=== PATIENT | male | born 1960 | race Caucasian/White ===

== ENCOUNTER 2016-10-02 | Outpatient (CLI) | payer MEDICAID | END 2016-10-02 11:50 | disposition critical access hospital (66) | DX: R41.82 Altered mental status, unspecified (principal) | CPT/HCPCS: A0425; A0427 ==

== ENCOUNTER 2016-10-02 12:01 | Inpatient (IN) | payer MEDICAID ==
[2016-10-02] MEDS ORDERED: SODIUM CHLORIDE 0.9% 1,000 ML IV ONE ×3 (12:09→16:30)
[2016-10-02] MEDS ORDERED: ETOMIDATE 40 MG/20 ML VIAL IVP ONE (12:37)
[2016-10-02] MEDS ORDERED: PROPOFOL 1000 MG/100 ML 100 ML IV ONE (12:37)
[2016-10-02] MEDS ORDERED: SUCCINYLCHOLINE 200 MG/10 ML VIAL ONE (12:38)
[2016-10-02] MEDS ORDERED: ELECTROLYTE-A SOLUTION 1,000 ML IV ONE ×2 (12:46→13:05)
[2016-10-02] MEDS ORDERED: LACTATED RINGERS 1,000 ML IV STA (12:46)
[2016-10-02] MEDS ORDERED: ETOMIDATE 40 MG/20 ML VIAL IVP STA (13:01)
[2016-10-02] MEDS ORDERED: SUCCINYLCHOLINE 200 MG/10 ML VIAL IVP STA (13:01)
[2016-10-02] MEDS: PROPOFOL 1000 MG/100 ML 100 ML IV STA ×2 (13:04→16:09)
[2016-10-02] MEDS ORDERED: LACTULOSE 10 GM /15 ML UDC PO STA (13:06)
[2016-10-02] MEDS ORDERED: fentaNYL 100 MCG/2 ML VIAL ONE ×2 (13:11→14:50)
[2016-10-02] MEDS ORDERED: fentaNYL 100 MCG/2 ML VIAL IVP STA ×2 (13:12→14:49)
[2016-10-02] MEDS ORDERED: VECURONIUM 10 MG VIAL IVP STA (13:17)
[2016-10-02] MEDS ORDERED: VECURONIUM 10 MG VIAL ONE (13:22)
[2016-10-02] MEDS ORDERED: PANTOPRAZOLE 40 MG VIAL IVP STA (13:41)
[2016-10-02] MEDS ORDERED: cefTRIAXone 2 GM in SODIUM CHLORIDE 0.9% MINIBAG 100 ML IV STA (13:41)
[2016-10-02] MEDS ORDERED: VANCOMYCIN INJ 1.5 GM in SODIUM CHLORIDE 0.9% 500 ML IV STA (13:41)
[2016-10-02] MEDS ORDERED: LORazepam 2 MG/ML SYRINGE IVP STA ×2 (13:41→14:29)
[2016-10-02] MEDS ORDERED: LACTULOSE 10 GM /15 ML UDC ONE (13:47)
[2016-10-02] MEDS ORDERED: LORazepam 2 MG/ML SYRINGE ONE ×2 (13:47→14:29)
[2016-10-02] MEDS ORDERED: PANTOPRAZOLE 40 MG VIAL ONE (13:55)
[2016-10-02] MEDS ORDERED: cefTRIAXone 2 GM VIAL ONE (14:10)
[2016-10-02] MEDS ORDERED: ONDANSETRON 4 MG/2 ML VIAL IVP PRN (15:36)
[2016-10-02] MEDS ORDERED: IPRATROPIUM/ALBUTEROL 3 ML NEB INH PRN (15:36)
[2016-10-02] MEDS ORDERED: SODIUM CHLORIDE FLUSH 0.9% 10 ML SYRINGE IVP PRN (15:36)
[2016-10-02] MEDS ORDERED: VANCOMYCIN PER PHARMACY 1 GM in SODIUM CHLORIDE 0.9% 250 ML IV SCH (15:36)
[2016-10-02] MEDS ORDERED: MAGNESIUM SULFATE 2 GRAM 50 ML IV ONE (16:00)
[2016-10-02] MEDS ORDERED: PIPERACILLIN/TAZOBACTAM 3.375 GM in SODIUM CHLORIDE 0.9% MINIBAG 100 ML IV ONE ×2 (16:00→17:00)
[2016-10-02] MEDS: PROPOFOL 1000 MG/100 ML 100 ML IV SCH ×2 (16:10→18:05)
[2016-10-02] MEDS ORDERED: MIDAZOLAM 50 MG/10 ML VIAL IVP PRN (16:11)
[2016-10-02] MEDS: SODIUM CHLORIDE 0.9% 1,000 ML IV SCH (16:14)
[2016-10-02] MEDS ORDERED: MIDAZOLAM 2 MG/2 ML VIAL ONE (16:18)
[2016-10-02] MEDS: LACTULOSE 10 GM /15 ML UDC PO SCH ×2 (16:27→20:32)
[2016-10-02] MEDS ORDERED: MULTIVITAMIN 10 ML, THIAMINE INJ 100 MG, FOLIC ACID INJ 1 MG in SODIUM CHLORIDE 0.9% 1,... IV ONE (16:30)
[2016-10-02] MEDS: MIDAZOLAM 2 MG/2 ML VIAL IVP PRN ×6 (17:07→20:40)
[2016-10-02] MEDS: SACCHAROMYCES BOULARDII 250 MG CAPSULE PO SCH (18:39)
[2016-10-02] MEDS ORDERED: DEXMEDETOMIDINE 400 MCG/100 ML 100 ML IV SCH (19:00)
[2016-10-02] MEDS: MORPHINE 2 MG/ML SYRINGE IVP PRN (20:24)
[2016-10-02] MEDS ORDERED: CHLORHEXIDINE GLUCONATE 15 ML UDC PO SCH (21:00)
[2016-10-02] MEDS: rifAXIMin 550 MG TABLET PO SCH (22:12)
[2016-10-02] MEDS: PANTOPRAZOLE 40 MG VIAL IVP SCH (22:17)
[2016-10-02] MEDS: SODIUM CHLORIDE FLUSH 0.9% 10 ML SYRINGE IVP SCH (22:17)
[2016-10-02] MEDS: LORazepam 2 MG/ML SYRINGE IVP PRN (22:59)
[2016-10-03] MEDS: MORPHINE 2 MG/ML SYRINGE IVP PRN ×3 (00:23→19:50)
[2016-10-03] MEDS: LACTULOSE 10 GM /15 ML UDC PO SCH ×2 (00:29→03:55)
[2016-10-03] MEDS: LORazepam 2 MG/ML SYRINGE IVP PRN ×2 (01:12→07:23)
[2016-10-03] MEDS ORDERED: SODIUM CHLORIDE 0.9% 250 ML IV ONE (01:39)
[2016-10-03] MEDS ORDERED: VANCOMYCIN INJ 1 GM, VANCOMYCIN INJ 500 MG in SODIUM CHLORIDE 0.9% 500 ML IV SCH (02:00)
[2016-10-03] MEDS: PIPERACILLIN/TAZOBACTAM 3.375 GM in SODIUM CHLORIDE 0.9% MINIBAG 100 ML IV SCH ×2 (03:10→09:33)
[2016-10-03] MEDS: LISINOPRIL 20 MG TABLET PO SCH ×3 (03:10→22:27)
[2016-10-03] MEDS: SODIUM CHLORIDE 0.9% 1,000 ML IV SCH (04:08)
[2016-10-03] MEDS: SODIUM CHLORIDE FLUSH 0.9% 10 ML SYRINGE IVP SCH ×4 (06:09→22:30)
[2016-10-03] MEDS ORDERED: POTASSIUM CHLORIDE 20 MEQ TABLET PO ONE (06:39)
[2016-10-03] MEDS: POTASSIUM CHLOR 10 MEQ/100 ML 100 ML IV SCH ×2 (06:50→06:51)
[2016-10-03] MEDS ORDERED: POTASSIUM CHLOR 10 MEQ/100 ML 100 ML IV SCH (07:21)
[2016-10-03] MEDS ORDERED: LACTULOSE 10 GM/15 ML BOTTLE PO SCH (08:00)
[2016-10-03] MEDS ORDERED: THIAMINE INJ 100 MG in SODIUM CHLORIDE 0.9% 100 ML IV SCH (09:00)
[2016-10-03] MEDS ORDERED: POTASSIUM PHOSPHATE 21 MMOL in SODIUM CHLORIDE 0.9% 250 ML IV SCH ×2 (09:00→14:00)
[2016-10-03] MEDS: SUCRALFATE 1 GM/10 ML UDC PO SCH ×4 (09:34→22:30)
[2016-10-03] MEDS: rifAXIMin 550 MG TABLET PO SCH (09:34)
[2016-10-03] MEDS: SACCHAROMYCES BOULARDII 250 MG CAPSULE PO SCH (09:34)
[2016-10-03] MEDS: PANTOPRAZOLE 40 MG VIAL IVP SCH (09:35)
[2016-10-03] MEDS ORDERED: clonazePAM 0.5 MG TABLET PO PRN ×2 (11:29→14:00)
[2016-10-03] MEDS ORDERED: IPRATROPIUM/ALBUTEROL 3 ML NEB INH PRN (14:00)
[2016-10-03] MEDS ORDERED: LORazepam 2 MG/ML SYRINGE IVP PRN (14:00)
[2016-10-03] MEDS: ONDANSETRON 4 MG/2 ML VIAL IVP PRN (14:43)
[2016-10-03] MEDS ORDERED: PANTOPRAZOLE 40 MG TABLET PO SCH ×2 (16:00→21:00)
[2016-10-03] MEDS ORDERED: MAG HYDROX/AL HYDROX/SIMETH 30 ML UDC PO PRN (16:38)
[2016-10-03] MEDS ORDERED: PRAMIPEXOLE 0.25 MG TABLET PO SCH (17:00)
[2016-10-03] MEDS: PHENAZOPYRIDINE 100 MG TABLET PO SCH ×2 (19:44→22:30)
[2016-10-03] MEDS ORDERED: HYDROCHLOROTHIAZIDE PO SCH (21:00)
[2016-10-03] MEDS ORDERED: LISINOPRIL PO SCH (21:00)
[2016-10-03] MEDS ORDERED: hydroCHLOROthiazide 12.5 MG CAPSULE PO SCH (21:00)
[2016-10-03] MEDS ORDERED: LISINOPRIL 20 MG TABLET PO SCH (21:00)
[2016-10-03] MEDS ORDERED: [UNRECOGNIZED DRUG - OTHER] PO SCH (21:00)
[2016-10-03] MEDS ORDERED: FERROUS SULFATE 325 MG TABLET PO SCH (21:00)
[2016-10-03] MEDS: hydroCHLOROthiazide 12.5 MG CAPSULE PO SCH (22:27)
[2016-10-03] MEDS: FERROUS SULFATE 325 MG TABLET PO SCH (22:27)
[2016-10-03] MEDS: PANTOPRAZOLE 40 MG VIAL IV SCH (22:28)
[2016-10-04] MEDS: SODIUM CHLORIDE FLUSH 0.9% 10 ML SYRINGE IVP PRN ×3 (00:03→16:29)
[2016-10-04] MEDS: MORPHINE 2 MG/ML SYRINGE IVP PRN ×5 (00:03→14:32)
[2016-10-04] MEDS: ONDANSETRON 4 MG/2 ML VIAL IVP PRN ×2 (00:10→09:42)
[2016-10-04] MEDS: SODIUM CHLORIDE FLUSH 0.9% 10 ML SYRINGE IVP SCH ×3 (05:46→20:34)
[2016-10-04] MEDS: PHENAZOPYRIDINE 100 MG TABLET PO SCH ×3 (05:46→21:56)
[2016-10-04] MEDS: SUCRALFATE 1 GM/10 ML UDC PO SCH ×4 (06:43→21:56)
[2016-10-04] MEDS ORDERED: POTASSIUM CHLORIDE 20 MEQ TABLET PO STA (07:51)
[2016-10-04] MEDS: POTASSIUM CHLORIDE INJ 40 MEQ in SODIUM CHLORIDE 0.9% 1,000 ML IV SCH ×2 (08:19→18:45)
[2016-10-04] MEDS: PANTOPRAZOLE 40 MG VIAL IV SCH ×2 (09:34→20:34)
[2016-10-04] MEDS: hydroCHLOROthiazide 12.5 MG CAPSULE PO SCH ×2 (09:35→20:34)
[2016-10-04] MEDS: PRENATAL VITAMIN TABLET PO SCH (09:35)
[2016-10-04] MEDS: LISINOPRIL 20 MG TABLET PO SCH ×2 (09:35→20:35)
[2016-10-04] MEDS: FERROUS SULFATE 325 MG TABLET PO SCH ×2 (09:35→20:35)
[2016-10-04] MEDS ORDERED: PROCHLORPERAZINE 10 MG/2 ML VIAL IVP PRN (14:17)
[2016-10-04] MEDS: HYDROmorphone 1 MG/ML SYRINGE IVP PRN ×2 (16:28→20:35)
[2016-10-04] MEDS: PRAMIPEXOLE 0.25 MG TABLET PO SCH (20:35)
[2016-10-05] MEDS: POTASSIUM CHLORIDE INJ 40 MEQ in SODIUM CHLORIDE 0.9% 1,000 ML IV SCH ×2 (04:24→16:11)
[2016-10-05] MEDS: PHENAZOPYRIDINE 100 MG TABLET PO SCH ×3 (05:49→22:37)
[2016-10-05] MEDS: SODIUM CHLORIDE FLUSH 0.9% 10 ML SYRINGE IVP SCH ×3 (05:49→22:36)
[2016-10-05] MEDS: HYDROmorphone 1 MG/ML SYRINGE IVP PRN ×6 (05:49→23:54)
[2016-10-05] MEDS: SUCRALFATE 1 GM/10 ML UDC PO SCH ×4 (06:44→22:37)
[2016-10-05] MEDS: LISINOPRIL 20 MG TABLET PO SCH ×2 (08:59→20:30)
[2016-10-05] MEDS: FERROUS SULFATE 325 MG TABLET PO SCH ×2 (08:59→20:30)
[2016-10-05] MEDS: hydroCHLOROthiazide 12.5 MG CAPSULE PO SCH ×2 (08:59→20:30)
[2016-10-05] MEDS: PANTOPRAZOLE 40 MG VIAL IV SCH ×2 (08:59→20:30)
[2016-10-05] MEDS: PRENATAL VITAMIN TABLET PO SCH (08:59)
[2016-10-05] MEDS: TAMSULOSIN 0.4 MG CAPSULE PO SCH (20:30)
[2016-10-05] MEDS: PRAMIPEXOLE 0.25 MG TABLET PO SCH (20:30)
[2016-10-06] MEDS: POTASSIUM CHLORIDE INJ 40 MEQ in SODIUM CHLORIDE 0.9% 1,000 ML IV SCH (02:58)
[2016-10-06] MEDS: HYDROmorphone 1 MG/ML SYRINGE IVP PRN ×5 (03:01→17:21)
[2016-10-06] MEDS: SODIUM CHLORIDE FLUSH 0.9% 10 ML SYRINGE IVP PRN ×3 (03:01→17:21)
[2016-10-06] MEDS: SUCRALFATE 1 GM/10 ML UDC PO SCH ×4 (05:38→16:21)
[2016-10-06] MEDS: SODIUM CHLORIDE FLUSH 0.9% 10 ML SYRINGE IVP SCH ×2 (06:03→13:12)
[2016-10-06] MEDS: PHENAZOPYRIDINE 100 MG TABLET PO SCH ×2 (06:13→13:24)
[2016-10-06] MEDS: LISINOPRIL 20 MG TABLET PO SCH (08:52)
[2016-10-06] MEDS: TAMSULOSIN 0.4 MG CAPSULE PO SCH (08:52)
[2016-10-06] MEDS: hydroCHLOROthiazide 12.5 MG CAPSULE PO SCH (08:52)
[2016-10-06] MEDS: PANTOPRAZOLE 40 MG VIAL IV SCH (08:53)
[2016-10-06] MEDS ORDERED: LIDO GARGLE 30 ML BOTTLE PO ONE (12:17)
[2016-10-06] MEDS ORDERED: BENZOCAINE/TETRACAINE/BUTAMBEN SPRAY 56 GM TOP ONE (12:17)
[2016-10-06] MEDS ORDERED: LACTATED RINGERS 1,000 ML IV ONE ×2 (12:18)
[2016-10-06] MEDS: PRENATAL VITAMIN TABLET PO SCH (13:24)
[2016-10-06] MEDS: FERROUS SULFATE 325 MG TABLET PO SCH (13:24)
[2016-10-06] MEDS ORDERED: amLODIPine 5 MG TABLET PO SCH (14:00)
[2016-10-06] MEDS ORDERED: FLU VACCINE QS 2016-17 60 MCG/0.5 ML SYRINGE IM ONE (18:00)
== END 2016-10-06 17:50 | disposition home or self-care (01) | DRG 377 ==
PROC: 30233N1 Transfusion of Nonautologous Red Blood Cells into Peripheral Vein, Percutaneous Approach (ICD-10-PCS; principal; 2016-10-03)
PROC: 0DB68ZX Excision of Stomach, Via Natural or Artificial Opening Endoscopic, Diagnostic (ICD-10-PCS; 2016-10-06)
DX: K92.0 Hematemesis (principal); A41.9 Sepsis, unspecified organism; E87.2 Acidosis; D62 Acute posthemorrhagic anemia; F10.239 Alcohol dependence with withdrawal, unspecified; R41.82 Altered mental status, unspecified; T51.0X1A Toxic effect of ethanol, accidental (unintentional), initial encounter; Y90.4 Blood alcohol level of 80-99 mg/100 ml; K29.70 Gastritis, unspecified, without bleeding; E86.0 Dehydration; K44.9 Diaphragmatic hernia without obstruction or gangrene; I10 Essential (primary) hypertension; J44.9 Chronic obstructive pulmonary disease, unspecified; K76.0 Fatty (change of) liver, not elsewhere classified; D64.9 Anemia, unspecified; K22.70 Barrett's esophagus without dysplasia; F17.210 Nicotine dependence, cigarettes, uncomplicated; R35.0 Frequency of micturition; G25.81 Restless legs syndrome; Z87.11 Personal history of peptic ulcer disease; Z78.1 Physical restraint status; Z79.899 Other long term (current) drug therapy

== ENCOUNTER 2016-10-12 09:44 | Outpatient (CLI) | payer MEDICAID | END 2016-10-12 09:45 | disposition home or self-care (01) | DX: K21.9 Gastro-esophageal reflux disease without esophagitis (principal); D64.9 Anemia, unspecified; Z12.5 Encounter for screening for malignant neoplasm of prostate; E29.1 Testicular hypofunction ==

== ENCOUNTER 2017-10-31 13:17 | Outpatient (CLI) | payer OTHER ==
[2017-10-31 13:47] LABS: BASOPHILS # (AUTO) 0.1 10^3/uL (0.0-0.1); EOSINOPHILS # (AUTO) 0.1 10^3/uL (0.0-0.7); EOSINOPHILS % (AUTO) 1.9 %; HGB - HEMOGLOBIN 10.2 g/dL (14.0-18.0); LYMPHOCYTES # (AUTO) 1.4 10^3/uL (1.5-3.5); LYMPHOCYTES % (AUTO) 24.4 %; MEAN CORPUSCULAR HEMOGLOBIN 24.4 pg (27.0-31.0); MEAN CORPUSCULAR HGB CONC 32.3 g/dL (32.0-36.0); MEAN CORPUSCULAR VOLUME 75.6 fL (80.0-94.0); MEAN PLATELET VOLUME 7.4 fL (7.4-11.4); MONOCYTES # (AUTO) 0.4 10^3/uL (0.0-1.0); NEUTROPHILS # (AUTO) 3.7 10^3/uL (1.5-6.6); NEUTROPHILS % (AUTO) 65.7 %; PLT - PLATELET COUNT 355 10^3/uL (130-450); RED BLOOD COUNT 4.16 10^6/uL (4.70-6.10); RED CELL DISTRIBUTION WIDTH 16.9 % (12.0-15.0); WHITE BLOOD COUNT 5.6 x10^3/uL (4.8-10.8)
[2017-10-31 14:04] LABS: % IRON SATURATION 3 % (20-50); CHOL/HDL RATIO 2.5 (<5.0); CHOLESTEROL 218 mg/dL; HDL CHOLESTEROL 88 mg/dL; IRON 14 ug/dL (45-182); LDL CHOLESTEROL,CALCULATED 106 mg/dL; LDL/HDL RATIO 1.2 (<3.6); TOTAL IRON BINDING CAPACITY 497 ug/dL (250-450); TRANSFERRIN 355 mg/dL (180-329); VLDL CHOLESTEROL 24 mg/dL
== END 2017-10-31 13:18 | disposition home or self-care (01) ==
LOC: LAB 13:17
PROVIDERS: ATTEND Nurse Practitioner Family
DX: Z13.6 Encounter for screening for cardiovascular disorders (principal); D64.9 Anemia, unspecified; E29.1 Testicular hypofunction
CPT/HCPCS: 36415; 80061; 82728; 83540; 83721; 84403; 84466; 85025

== ENCOUNTER 2017-11-14 14:29 | Outpatient (CLI) | payer OTHER | END 2017-11-14 14:30 | disposition home or self-care (01) | LOC: SC 14:29 | PROVIDERS: ATTEND Nurse Practitioner Family | DX: G47.10 Hypersomnia, unspecified (principal); G47.8 Other sleep disorders; R06.83 Snoring | CPT/HCPCS: 99204; 99212 ==

== ENCOUNTER 2017-11-24 19:49 | Emergency (ER) | payer OTHER ==
[2017-11-24 20:18] LABS: BASOPHILS # (AUTO) 0.1 10^3/uL (0.0-0.1); BASOPHILS % (AUTO) 1.7 %; EOSINOPHILS # (AUTO) 0.1 10^3/uL (0.0-0.7); EOSINOPHILS % (AUTO) 1.1 %; HGB - HEMOGLOBIN 9.6 g/dL (14.0-18.0); LYMPHOCYTES # (AUTO) 0.9 10^3/uL (1.5-3.5); LYMPHOCYTES % (AUTO) 17.4 %; MEAN CORPUSCULAR HEMOGLOBIN 26.3 pg (27.0-31.0); MEAN CORPUSCULAR HGB CONC 33.1 g/dL (32.0-36.0); MEAN CORPUSCULAR VOLUME 79.3 fL (80.0-94.0); MEAN PLATELET VOLUME 6.9 fL (7.4-11.4); MONOCYTES # (AUTO) 0.4 10^3/uL (0.0-1.0); MONOCYTES % (AUTO) 7.4 %; NEUTROPHILS # (AUTO) 3.9 10^3/uL (1.5-6.6); NEUTROPHILS % (AUTO) 72.4 %; PLT - PLATELET COUNT 362 10^3/uL (130-450); RED BLOOD COUNT 3.67 10^6/uL (4.70-6.10); RED CELL DISTRIBUTION WIDTH 17.1 % (12.0-15.0); WHITE BLOOD COUNT 5.4 x10^3/uL (4.8-10.8)
[2017-11-24 20:29] LABS: ALBUMIN 3.9 g/dL (3.2-5.5); ALBUMIN/GLOBULIN RATIO 1.4 (1.0-2.2); BILIRUBIN,TOTAL 0.6 mg/dL (0.2-1.0); CALCIUM 9.5 mg/dL (8.5-10.3); CREATININE 1.9 mg/dL (0.6-1.2); TOTAL PROTEIN 6.7 g/dL (6.7-8.2)
[2017-11-24] MEDS ORDERED: MORPHINE 10 MG/ML VIAL IVP STA (20:59)
[2017-11-24] MEDS ORDERED: HYDROmorphone 1 MG/ML SYRINGE IVP STA ×2 (21:05→22:06)
--- NOTE | 2017-11-24 21:11 | ED Physician Documentation ---
PD HPI SYNCOPE - Stated complaint Stated Complaint: R RIB PX/SYNCOPE/FALL - Chief complaint Chief Complaint: Neuro - History obtained from History obtained from: Patient - History of Present Illness Witnessed: Unwitnessed (57-year-old gentleman with history of chronic unclear iron deficiency anemia. He has had hemoglobins as low as 4.6 in the past and has had GI bleeding. Past medical records suggest alcoholism, although he says he thinks he drinks in moderation but did drink tonight. He had syncope tonight with only short premonition hitting his right ribs on a box. He was at home alone at the time and is unclear how long he was unconscious for. At this point only complains of right rib pain, no other chest pain or trouble breathing.) Review of Systems Constitutional: reports: Reviewed and negative Throat: denies: Dental pain / toothache, Sore throat Cardiac: denies: Chest pain / pressure, Palpitations Respiratory: denies: Dyspnea, Cough PD PAST MEDICAL HISTORY - Past Medical History Cardiovascular: Hypertension Respiratory: None, COPD Neuro: None Endocrine/Autoimmune: None GI: None : None HEENT: None Psych: None Musculoskeletal: None, Other Derm: None - Past Surgical History Past Surgical History: Yes General: EGD, Other Ortho: Arthroscopic surgery - Present Medications Home Medications: Ambulatory Orders Medication Instructions Recorded Confirmed traMADol [Ultram] 50 mg PO Q4H PRN 02/19/15 11/15/17 Lisinopril/Hydrochlorothiazide 1 each PO BID 10/03/16 11/15/17 [Lisinopril-Hctz 20-12.5 mg Tab] Omeprazole [PriLOSEC] 40 mg PO BID #60 capsule 10/06/16 11/15/17 HYDROcod/ACETAM 5/325 [[place] 5/325] 1 - 2 ea PO Q6H PRN #15 tablet 11/24/17 - Allergies Allergies/Adverse Reactions: Allergies Allergy/AdvReac Type Severity Reaction Status Date / Time No Known Drug Allergies Allergy Verified 02/19/15 17:09 - Social History Does the pt smoke?: Yes Smoking Status: Current every day smoker Does the pt drink ETOH?: Yes Does the pt have substance abuse?: No - Immunizations Immunizations are current?: Yes - POLST Patient has POLST: No PD ED PE NORMAL - Vitals Vital signs reviewed: Yes - General General: Alert and oriented X 3, No acute distress - HEENT HEENT: PERRL, EOMI - Neck Neck: Supple, no meningeal sign, No bony TTP - Cardiac Cardiac: RRR, No murmur - Respiratory Respiratory: No respiratory distress, Clear bilaterally, Other (Quite tender over about ribs 7, anterior axillary line on the right.) - Abdomen Abdomen: Non tender - Rectal Rectal: Other (Brown guaiac neg stool QC pass.) - Back Back: No CVA TTP, No spinal TTP - Derm Derm: Normal color, Warm and dry - Extremities Extremities: No edema, No calf tenderness / cord - Neuro Neuro: Alert and oriented X 3, Normal speech Eye Opening: Spontaneous Motor: Obeys Commands Verbal: Oriented GCS Score: 15 - Psych Psych: Normal mood, Normal affect Results - Vitals Vitals: Vital Signs - 24 hr 11/24/17 11/24/17 19:56 22:16 Temperature 36.3 C L Heart Rate 90 89 Respiratory 22 12 Rate Blood Pressure 103/65 144/61 H O2 Saturation 96 97 Oxygen O2 Source Room air - EKG (time done) 2000 Rate: Rate (enter#) (93) Rhythm: NSR Intervals: Other (LPFB) QRS: LVH Ischemia: Non specific changes Computer interpretation: Agree with computer - Labs Labs: Laboratory Tests 11/24/17 11/24/17 11/24/17 20:11 20:11 20:11 WBC 5.4 RBC 3.67 L Hgb 9.6 L Hct 29.1 L MCV 79.3 L MCH 26.3 L MCHC 33.1 RDW 17.1 H Plt Count 362 MPV 6.9 L Neut # 3.9 Lymph # 0.9 L [place] # 0.4 Eos # 0.1 Baso # 0.1 Absolute Nucleated RBC 0.02 Nucleated RBC % 0.3 Sodium 131 L Potassium 3.4 L Chloride 96 L Carbon Dioxide 20 L Anion Gap 15.0 H BUN 29 H Creatinine 1.9 H Estimated GFR (MDRD) 37 L Glucose 187 H Calcium 9.5 Total Bilirubin 0.6 AST 46 H ALT 53 Alkaline Phosphatase 69 Total Protein 6.7 Albumin 3.9 Globulin 2.8 Albumin/Globulin Ratio 1.4 Lipase 31 Ethyl Alcohol 34.2 PD MEDICAL DECISION MAKING - ED course ED course: 57-year-old gentleman with chronic anemia and potential alcohol abuse presents after syncopal episode tonight. He is guaiac negative and his his H&H are at their baseline. He does have evidence of dehydration with elevated BUN and creatinine over his baseline for which she was administered IV fluids. His main complaint was chest wall pain from where he hit, no evidence of displaced rib fracture there. He was administered pain medication and begin IV fluids. He was advised not to drink alcohol. He also will need to follow-up for repeat lab testing and potentially an echocardiogram with his primary care physician. Departure - Departure Disposition: 01 Home, Self Care Clinical Impression: Symptomatic anemia, Alcohol abuse, Dehydration Syncope Qualifiers: Syncope type: unspecified Qualified Code(s): R55 - Syncope and collapse Chest wall contusion Qualifiers: Encounter type: initial encounter Laterality: right Qualified Code(s): S20.211A - Contusion of right front wall of thorax, initial encounter Condition: Good Record reviewed to determine appropriate education?: Yes Instructions: ED Dehydration Prescriptions: HYDROcod/ACETAM 5/325 [[place] 5/325] 1 - 2 ea PO Q6H PRN #15 tablet PRN Reason: Pain Comments: Stop drinking alcohol Drink plenty of fluids. Return if worse or if new symptoms develop. Follow-up with your physician, next available appointment. They may want to recheck labs as he did appear dehydrated on your labs here today and they may want to schedule you for an echocardiogram given the episode of passing out to make sure there is not a heart problem. Do not drink or drive while taking narcotic pain medication. Note that many narcotic pain relievers also contain Tylenol/acetaminophen. Please ensure that your total dose of acetaminophen from all sources does not exceed 3 g (3000 mg) per day. You may get constipated while on this medication. Take a stool softener such as Colace twice a day while you are on it. Also add an [id number] laxative such as senna or MiraLAX on any day that you do not have a bowel movement. If you received a narcotic pain medication or sedative while in the emergency department, do not drive for the next 24 hours.
[2017-11-24] MEDS ORDERED: SODIUM CHLORIDE 0.9% 1,000 ML IV ONE (22:01)
[2017-11-24] MEDS ORDERED: CALCIUM CARBONATE CHEW 500 MG TABLET PO STA (22:09)
--- NOTE | 2017-11-24 22:10 | XRAY Preliminary Report ---
Exam: XR RIBS W/PA CHEST RT IMPRESSION: 1. No displaced rib fracture or complication from rib fracture seen. 2. Small to moderate hiatal hernia. [facility] SITE ID: [id number]
--- NOTE | 2017-11-24 22:15 | XRAY Report ---
EXAM: RIGHT RIB RADIOGRAPHY EXAM DATE: 11/24/2017 09:15 PM. CLINICAL HISTORY: Rib pain fall. COMPARISON: 10/02/2016. TECHNIQUE: 1 view of the chest and 5 views of the ribs. FINDINGS: Bones: Normal. No fracture or bone lesion. Lungs: No focal opacities. No pneumothorax. No pleural effusions. Mediastinum: Heart and mediastinal contours are unremarkable with exception of a [id number] hi atal hernia. Other: None. IMPRESSION: 1. No displaced rib fracture or complication from rib fracture seen. 2. Small to moderate hiatal hernia. [facility] Referring Provider Line: [phone] SITE ID: [id number]
[2017-11-24] MEDS ORDERED: HYDROcod/ACET 5/325 Prepack 6 PO STA (22:26)
[2017-11-24 23:10] VITALS: BP 117/57
== END 2017-11-24 23:26 | disposition home or self-care (01) ==
LOC: ED 19:49
DX: D64.9 Anemia, unspecified (principal); F10.10 Alcohol abuse, uncomplicated; E86.0 Dehydration; R55 Syncope and collapse; S20.211A Contusion of right front wall of thorax, initial encounter; W17.89XA Other fall from one level to another, initial encounter; W22.8XXA Striking against or struck by other objects, initial encounter; I44.5 Left posterior fascicular block; Y92.009 Unspecified place in unspecified non-institutional (private) residence as the place of occurrence of the external cause
CPT/HCPCS: 36415; 71101; 80053; 80320; 83690; 85025; 93005; 96361; 96374; 96376; 99284; A9270; J1170

== ENCOUNTER 2018-07-28 12:27 | Outpatient (CLI) | payer OTHER ==
--- NOTE | 2018-07-28 15:37 | XRAY Report ---
Reason: DYSPENA Procedure Date: 07/28/2018 Accession Number: [id number] / [id number] Procedure: XR - Chest 2 View X-Ray CPT Code: 74730 FULL RESULT: EXAM: CHEST RADIOGRAPHY EXAM DATE: 07/28/2018 12:35 PM. CLINICAL HISTORY: DYSPNEA. COMPARISON: RIBS W/PA CHEST RT 11/24/2017 9:15 PM. TECHNIQUE: 2 views. FINDINGS: Lungs/Pleura: No consolidation, pleural effusion, or pneumothorax. Mediastinum: Heart size is normal. Calcified plaques in the thoracic aorta. Other: None. IMPRESSION: No acute cardiopulmonary findings. [facility]
== END 2018-07-28 12:28 | disposition home or self-care (01) ==
LOC: DI 12:27
PROVIDERS: ATTEND Internal Medicine
DX: R06.00 Dyspnea, unspecified (principal); Z87.891 Personal history of nicotine dependence
CPT/HCPCS: 71046

== ENCOUNTER 2018-09-01 08:40 | Emergency (ER) | payer OTHER ==
--- NOTE | 2018-09-01 09:07 | ED Physician Documentation ---
PD HPI DYSPNEA - Stated complaint Stated Complaint: FATIQUE, WEAKNESS - Chief complaint Chief Complaint: Cardiac - History obtained from History obtained from: Patient - History of Present Illness Timing - onset: How many weeks ago (increasing weakness and dyspnea with exertion over several weeks.) Timing - onset during: Light activity, Exertion Timing - duration: Weeks Timing - details: Gradual onset, Still present Inciting event(s): Other (anemia historically.) Improved by: Rest Worsened by: Exertion. No: Laying flat Associated symptoms: No: Fever, Cough, Hemoptysis, Diaphoresis, Bilateral edema Similar symptoms before: Diagnosis (iron deficiency anemia, With blood tests and stool studies and upper and lower endoscopies without any source of blood loss. He was found to be iron deficient and was on iron supplements and IV iron infusions through the [facility] with improvement in his blood count and iron stores. He had not been any iron supplement for the past 6 months or more.) Recently seen: Clinic (had blood count yesterday in office and found to be low, referred to ER. He went home to take care of his dogs for the evening. Worse fatigue today, so now to the ER.) Review of Systems Constitutional: reports: Fatigue. denies: Fever, Chills, Myalgias Nose: denies: Rhinorrhea / runny nose, Congestion, Epistaxis Throat: denies: Sore throat Cardiac: denies: Chest pain / pressure, Palpitations Respiratory: reports: Dyspnea. denies: Cough, Wheezing GI: denies: Nausea, Vomiting, Diarrhea, Bloody / black stool : denies: Hematuria Neurologic: reports: Generalized weakness. denies: Near syncope, Syncope, Altered mental status, Headache Endocrine: denies: Easy bruising / bleeding Immunocompromised: denies: Immunocompromised PD PAST MEDICAL HISTORY - Past Medical History Cardiovascular: Hypertension Respiratory: COPD Endocrine/Autoimmune: None GI: None : None HEENT: None Psych: None Musculoskeletal: None, Other Derm: None - Past Surgical History Past Surgical History: Yes General: EGD, Other Ortho: Arthroscopic surgery - Present Medications Home Medications: Ambulatory Orders Medication Instructions Recorded Confirmed traMADol [Ultram] 50 mg PO Q4H PRN 02/19/15 09/01/18 Lisinopril/Hydrochlorothiazide 1 each PO BID 10/03/16 09/01/18 [Lisinopril-Hctz 20-12.5 mg Tab] Omeprazole [PriLOSEC] 40 mg PO BID #60 capsule 10/06/16 09/01/18 Ferrous Gluconate 324 mg PO DAILY #30 tablet 09/01/18 Pramipexole Di-HCl [Pramipexole 09/01/18 Dihydrochloride] Zolpidem Tartrate 5 mg ORAL DAILY PRN 09/01/18 09/01/18 - Allergies Allergies/Adverse Reactions: Allergies Allergy/AdvReac Type Severity Reaction Status Date / Time No Known Drug Allergies Allergy Verified 09/01/18 08:53 - Social History Does the pt smoke?: Yes Smoking Status: Former smoker Does the pt drink ETOH?: Yes Does the pt have substance abuse?: No - Immunizations Immunizations are current?: Yes - POLST Patient has POLST: No PD ED PE NORMAL - Vitals Vital signs reviewed: Yes - General General: Alert and oriented X 3, No acute distress, Well developed/nourished - HEENT HEENT: Moist mucous membranes, Pharynx benign - Neck Neck: Supple, no meningeal sign, No adenopathy, No JVD - Cardiac Cardiac: RRR, No murmur - Respiratory Respiratory: Clear bilaterally - Abdomen Abdomen: Soft, Non tender - Male Male : Deferred - Rectal Rectal: Deferred - Back Back: No CVA TTP - Derm Derm: Warm and dry, No rash. No: Normal color (pale) - Extremities Extremities: No deformity, No tenderness to palpate, Normal ROM s pain, No edema, No calf tenderness / cord - Neuro Neuro: Alert and oriented X 3, No motor deficit, Normal speech Eye Opening: Spontaneous Motor: Obeys Commands Verbal: Oriented GCS Score: 15 Results - Vitals Vitals: Vital Signs - 24 hr 09/01/18 09/01/18 09/01/18 08:50 09:23 09:55 Temperature 37.0 C Heart Rate 77 76 71 Respiratory 18 18 17 Rate Blood Pressure 183/91 H 160/91 H 145/97 H O2 Saturation 98 100 99 09/01/18 09/01/18 09/01/18 11:16 11:33 11:39 Temperature 36.5 C 36.4 C L Heart Rate 61 67 61 Respiratory 19 22 17 Rate Blood Pressure 120/75 120/75 144/70 H O2 Saturation 99 09/01/18 09/01/18 09/01/18 11:49 12:04 13:25 Temperature 36.5 C 36.2 C L 36.6 C Heart Rate 70 84 62 Respiratory 20 20 21 Rate Blood Pressure 152/93 H 136/67 H 152/76 H O2 Saturation 09/01/18 09/01/18 09/01/18 13:28 13:32 13:43 Temperature 36.6 C 36.6 C 36.7 C Heart Rate 62 64 64 Respiratory 23 19 16 Rate Blood Pressure 152/76 H 140/89 H 156/89 H O2 Saturation 09/01/18 09/01/18 09/01/18 14:04 15:01 15:09 Temperature 36.5 C Heart Rate 68 69 69 Respiratory 18 20 20 Rate Blood Pressure 148/86 H 140/75 H 140/75 H O2 Saturation 100 99 Oxygen O2 Source Room air - Labs Labs: Laboratory Tests 09/01/18 09/01/18 09/01/18 09:03 09:06 09:06 WBC 5.3 RBC 3.78 L Hgb 7.1 L Hct 23.7 L MCV 62.7 L MCH 18.8 L MCHC 29.9 L RDW 18.2 H Plt Count 524 H MPV 6.3 L Reticulocyte % (Auto) Absolute Retic PT INR APTT 23.2 L Sodium Potassium Chloride Carbon Dioxide Anion Gap BUN Creatinine Estimated GFR (MDRD) Glucose Calcium Iron TIBC % Saturation Transferrin Ferritin Total Bilirubin AST ALT Alkaline Phosphatase Total Creatine Kinase B-Natriuretic Peptide Total Protein Albumin Globulin Albumin/Globulin Ratio Lipase Vitamin B12 Folate Blood Type O POSITIVE Antibody Screen NEGATIVE Crossmatch IS Only See Detail 09/01/18 09/01/18 09/01/18 09:06 09:06 09:08 WBC RBC 3.78 L Hgb Hct MCV MCH MCHC RDW Plt Count MPV Reticulocyte % (Auto) 2.41 H Absolute Retic 0.091 PT 11.6 INR 1.0 APTT Sodium 138 Potassium 3.6 Chloride 102 Carbon Dioxide 26 Anion Gap 10.0 BUN 23 H Creatinine 1.0 Estimated GFR (MDRD) 77 L Glucose 129 H Calcium 9.4 Iron TIBC % Saturation Transferrin Ferritin Total Bilirubin 0.5 AST 24 ALT 17 Alkaline Phosphatase 59 Total Creatine Kinase B-Natriuretic Peptide Total Protein 7.4 Albumin 3.9 Globulin 3.5 Albumin/Globulin Ratio 1.1 Lipase 30 Vitamin B12 Folate Blood Type Antibody Screen Crossmatch IS Only 09/01/18 09/01/18 09/01/18 09:08 09:08 09:08 WBC RBC Hgb Hct MCV MCH MCHC RDW Plt Count MPV Reticulocyte % (Auto) Absolute Retic PT INR APTT Sodium Potassium Chloride Carbon Dioxide Anion Gap BUN Creatinine Estimated GFR (MDRD) Glucose Calcium Iron 9 L TIBC 578 H % Saturation 2 L Transferrin 413 H Ferritin 3.4 L Total Bilirubin AST ALT Alkaline Phosphatase Total Creatine Kinase 75 B-Natriuretic Peptide Total Protein Albumin Globulin Albumin/Globulin Ratio Lipase Vitamin B12 521 Folate 22.44 Blood Type Antibody Screen Crossmatch IS Only 09/01/18 09/01/18 09:08 15:35 WBC 4.8 RBC 4.08 L Hgb 8.5 L Hct 27.5 L MCV 67.4 L MCH 20.8 L MCHC 30.9 L RDW 22.8 H Plt Count 464 H MPV 6.1 L Reticulocyte % (Auto) Absolute Retic PT INR APTT Sodium Potassium Chloride Carbon Dioxide Anion Gap BUN Creatinine Estimated GFR (MDRD) Glucose Calcium Iron TIBC % Saturation Transferrin Ferritin Total Bilirubin AST ALT Alkaline Phosphatase Total Creatine Kinase B-Natriuretic Peptide 23 Total Protein Albumin Globulin Albumin/Globulin Ratio Lipase Vitamin B12 Folate Blood Type Antibody Screen Crossmatch IS Only PD MEDICAL DECISION MAKING - ED course Complexity details: considered differential (His symptoms could be consistent with significant anemia. He has had similar in the past and had felt better after transfusions. He does have history of iron deficiency anemia previously. He is not currently on any iron supplements. This has been a progressive worsening over several weeks to a month or more. He does need transfusions to help with his degree of symptoms. It would be not possible to arrange this in another venue being Monday right now. We will give him transfusions here in the ER. Can check with hospitalist but he is unlikely to meet OBS criteria.), d/w patient Departure - Departure Disposition: Home, Self Care Clinical Impression: Generalized weakness, Symptomatic anemia Iron deficiency anemia Qualifiers: Iron deficiency anemia type: other iron deficiency Qualified Code(s): D50.8 - Other iron deficiency anemias Condition: Stable Record reviewed to determine appropriate education?: Yes Instructions: ED Anemia Iron Deficiency Follow-Up: Candelaria Valentin ARNP [Primary Care Provider] - Prescriptions: Ferrous Gluconate 324 mg PO DAILY #30 tablet Comments: You do have significant iron deficiency. For now would make sense to have an iron supplement orally. Follow-up with your primary care as they may need to do the iron infusions again. Eat well and continue your other usual medications. Forms: Activity restrictions Discharge Date/Time: 09/01/18 15:49
[2018-09-01 09:20] LABS: PT - PROTHROMBIN TIME 11.6 secs (9.9-12.6)
[2018-09-01 09:25] LABS: ALBUMIN 3.9 g/dL (3.2-5.5); ALBUMIN/GLOBULIN RATIO 1.1 (1.0-2.2); BILIRUBIN,TOTAL 0.5 mg/dL (0.2-1.0); CALCIUM 9.4 mg/dL (8.5-10.3); HGB - HEMOGLOBIN 7.1 g/dL (14.0-18.0); MEAN CORPUSCULAR HEMOGLOBIN 18.8 pg (27.0-31.0); MEAN CORPUSCULAR HGB CONC 29.9 g/dL (32.0-36.0); MEAN PLATELET VOLUME 6.3 fL (7.4-11.4); RED BLOOD COUNT 3.78 10^6/uL (4.70-6.10); RED CELL DISTRIBUTION WIDTH 18.2 % (12.0-15.0); TOTAL PROTEIN 7.4 g/dL (6.7-8.2); WHITE BLOOD COUNT 5.3 x10^3/uL (4.8-10.8)
[2018-09-01] MEDS ORDERED: SODIUM CHLORIDE 0.9% 1,000 ML IV ONE (09:38)
[2018-09-01 10:09] LABS: MEAN RETIC VALUE 103.3; RED BLOOD COUNT 3.78 10^6/uL (4.70-6.10)
[2018-09-01 10:12] LABS: % IRON SATURATION 2 % (20-50); IRON 9 ug/dL (45-182); TOTAL IRON BINDING CAPACITY 578 ug/dL (250-450); TRANSFERRIN 413 mg/dL (180-329)
[2018-09-01 10:28] LABS: CK- CREATINE KINASE 75 IU/L (22-269); FERRITIN 3.4 ng/mL (23.9-336.2)
[2018-09-01 10:35] LABS: MEAN CORPUSCULAR VOLUME 62.7 fL (80.0-94.0)
[2018-09-01 15:03] VITALS: BP 140/75
[2018-09-01 15:51] LABS: HGB - HEMOGLOBIN 8.5 g/dL (14.0-18.0); MEAN CORPUSCULAR HEMOGLOBIN 20.8 pg (27.0-31.0); MEAN CORPUSCULAR HGB CONC 30.9 g/dL (32.0-36.0); MEAN CORPUSCULAR VOLUME 67.4 fL (80.0-94.0); MEAN PLATELET VOLUME 6.1 fL (7.4-11.4); RED BLOOD COUNT 4.08 10^6/uL (4.70-6.10); RED CELL DISTRIBUTION WIDTH 22.8 % (12.0-15.0); WHITE BLOOD COUNT 4.8 x10^3/uL (4.8-10.8)
== END 2018-09-01 15:49 | disposition home or self-care (01) ==
LOC: ED 08:40
DX: R53.1 Weakness (principal); D50.8 Other iron deficiency anemias; R94.31 Abnormal electrocardiogram [ECG] [EKG]; I10 Essential (primary) hypertension; Z87.891 Personal history of nicotine dependence
CPT/HCPCS: 36415; 36430; 80053; 82550; 82607; 82728; 82746; 83540; 83690; 83880; 84466; 85027; 85044; 85610; 85730; 86850; 86900; 86901; 86920; 93005; 96360; 96361; 99283; 99284; P9016

== ENCOUNTER 2019-03-17 12:00 | Emergency (ER) | payer OTHER ==
--- NOTE | 2019-03-17 12:16 | ED Physician Documentation ---
PD HPI HEAD INJURY - Stated complaint Stated Complaint: LFT EAR LAC - Chief complaint Chief Complaint: Trauma Hd/Nk - History obtained from History obtained from: Patient - History of Present Illness Mechanism of head injury: Fell Where head injury occurred: Home (he stepped on dog toy and tripped, falling into drywall head first. Contusion/abrasion of forehead and nose. Lac to left ear outer pinna.) Timing - onset: How many hours ago (in the evening), Today Location of injury: Left, Front Quality of pain: Aching Associated symptoms: No: LOC, AMS, Nausea / vomiting Symptoms worsen with: Palpation Contributing factors: No: Anticoagulated Similar symptoms before: Has not had sx before Recently seen: Not recently seen Review of Systems Neurologic: denies: Focal weakness, Numbness, Confused, Altered mental status, Headache PD PAST MEDICAL HISTORY - Past Medical History Cardiovascular: Hypertension Respiratory: COPD Endocrine/Autoimmune: None GI: None : None HEENT: None Psych: None Musculoskeletal: None, Other Derm: None - Past Surgical History Past Surgical History: Yes General: EGD, Other Ortho: Arthroscopic surgery - Present Medications Home Medications: Ambulatory Orders Medication Instructions Recorded Confirmed traMADol [Ultram] 50 mg PO Q4H PRN 02/19/15 09/01/18 Lisinopril/Hydrochlorothiazide 1 each PO BID 10/03/16 09/01/18 [Lisinopril-Hctz 20-12.5 mg Tab] Omeprazole [PriLOSEC] 40 mg PO BID #60 capsule 10/06/16 09/01/18 Ferrous Gluconate 324 mg PO DAILY #30 tablet 09/01/18 Pramipexole Di-HCl [Pramipexole 09/01/18 Dihydrochloride] Zolpidem Tartrate 5 mg ORAL DAILY PRN 09/01/18 09/01/18 - Allergies Allergies/Adverse Reactions: Allergies Allergy/AdvReac Type Severity Reaction Status Date / Time No Known Drug Allergies Allergy Verified 03/17/19 12:06 - Social History Does the pt smoke?: Yes Smoking Status: Former smoker Does the pt drink ETOH?: Yes Does the pt have substance abuse?: No - Immunizations Immunizations are current?: Yes - POLST Patient has POLST: No PD ED PE NORMAL - Vitals Vital signs reviewed: Yes - General General: Alert and oriented X 3, No acute distress, Well developed/nourished - HEENT HEENT: Other (forehead and nose with abrasions and tenderness. No bony deformity of the nose. Left ear with lac of skin, exposing the cartilage at lower aspect of the outer helix into the tragus area. No FB and no current bleeding. ) - Neck Neck: Supple, no meningeal sign, No bony TTP, No adenopathy - Cardiac Cardiac: RRR, No murmur - Respiratory Respiratory: Clear bilaterally - Abdomen Abdomen: Soft, Non tender - Derm Derm: Normal color, Warm and dry - Neuro Neuro: Alert and oriented X 3, labor and delivery nurse 2-12 intact, No motor deficit, No sensory deficit, Normal speech, Other Eye Opening: Spontaneous Motor: Obeys Commands Verbal: Oriented GCS Score: 15 - Psych Psych: Normal mood, Normal affect PD ED PE EXPANDED - HEENT HEENT Visual: 1 - laceration Results - Vitals Vitals: Oxygen O2 Source Room air Procedures - Laceration (location) left ear Length in cm: 1.5 Wound type: Into subcut fat, Clean Neurovascular status: Sensory intact Anesthesia: LET, Lidocaine 2% Wound Preparation: Wound explored, To the base. No: FB identified Skin layer closure: Nylon, Running, Size #-0 - enter number (5) Other: Patient tolerated well, No complications, Dressing applied, Tetanus booster given Complexity: Simple Departure - Departure Disposition: 01 Home, Self Care Clinical Impression: Multiple contusions Laceration of ear Qualifiers: Encounter type: initial encounter Laterality: left Qualified Code(s): S01.312A - Laceration without foreign body of left ear, initial encounter Facial abrasion Qualifiers: Encounter type: initial encounter Qualified Code(s): S00.81XA - Abrasion of other part of head, initial encounter Condition: Stable Record reviewed to determine appropriate education?: Yes Instructions: ED Laceration Facial Sutr Tape Comments: It is okay to wash and shower. Clean off the wound twice a day with soap and water, or peroxide and water. Apply some antibiotic ointment to it to keep it moist. Also to watch for signs of infection such as purulence, redness or increa sing pain. Return to your primary care or the ER at the specified time for suture removal. Suture removal 7 to 8 days. Tylenol or ibuprofen as needed for pains generally. He did not have any findin gs that would suggest fractures. Recheck if areas of the elbow or knee etc. are not improved over the next week. Discharge Date/Time: 03/17/19 13:33
[2019-03-17] MEDS ORDERED: LIDOCAINE-EPINEPH-TETRACAINE 3 ML SYRINGE TOP STA (12:29)
[2019-03-17] MEDS ORDERED: ACETAMINOPHEN 325 MG TABLET PO STA (12:29)
[2019-03-17] MEDS ORDERED: TETANUS/DIPHTHERIA/PERTUSSIS 0.5 ML SYRINGE IM ONE (12:29)
[2019-03-17] MEDS ORDERED: IBUPROFEN 800 MG TABLET PO STA (12:29)
[2019-03-17 13:34] VITALS: BP 152/74
== END 2019-03-17 13:33 | disposition home or self-care (01) ==
LOC: ED 12:00
DX: S01.312A Laceration without foreign body of left ear, initial encounter (principal); S00.81XA Abrasion of other part of head, initial encounter; S00.31XA Abrasion of nose, initial encounter; S00.83XA Contusion of other part of head, initial encounter; W01.198A Fall on same level from slipping, tripping and stumbling with subsequent striking against other object, initial encounter; Y92.009 Unspecified place in unspecified non-institutional (private) residence as the place of occurrence of the external cause; Z23 Encounter for immunization; I10 Essential (primary) hypertension; Z87.891 Personal history of nicotine dependence
CPT/HCPCS: 12011; 90471; 90715; 99282; 99283; A9270

== ENCOUNTER 2023-07-04 18:48 | Emergency (ER) | payer MEDICARE, MEDICAID ==
[2023-07-04] MEDS ORDERED: LORazepam 2 MG/ML VIAL IVP STA (19:07)
--- NOTE | 2023-07-04 19:10 | ED Physician Documentation ---
History of Present Illness - Stated complaint Stated Complaint: SHAKY/WEAK/SOA - Chief complaint Chief Complaint: Neuro - History obtained from History obtained from: Patient - History of Present Illness Timing: Today Pain level max: 0 Pain level now: 0 - Additonal information Additional information: Patient is a 63-year-old male who presents to the emergency department stating about an hour ago he began to have increased shaking in his leg. He states has a history of restless leg syndrome. He takes trazodone at home for this. He states he does drink several shots per night, last drink was yesterday. No difficulty breathing or speaking. No loss of consciousness. No head injury. Drove himself to the emergency department. He states the this usually happens when his anemia worsens and he needs a "transfusion". No fevers. No chills. Nothing makes it better or worse. Review of Systems Constitutional: denies: Fever, Chills Respiratory: denies: Cough GI: denies: Nausea, Vomiting, Diarrhea Skin: denies: Rash Musculoskeletal: denies: Neck pain, Back pain Neurologic: denies: Focal weakness, Numbness, Confused, Altered mental status, Headache PD PAST MEDICAL HISTORY - Past Medical History Cardiovascular: Hypertension Respiratory: COPD Endocrine/Autoimmune: None GI: None : None HEENT: None Psych: None Musculoskeletal: None, Other Derm: None - Past Surgical History Past Surgical History: Yes General: EGD, Other Ortho: Arthroscopic surgery - Present Medications Home Medications: Ambulatory Orders Medication Instructions Recorded Confirmed traMADol [Ultram] 50 mg PO Q4H PRN 02/19/15 09/01/18 Lisinopril/Hydrochlorothiazide 1 each PO BID 10/03/16 09/01/18 [Lisinopril-Hctz 20-12.5 mg Tab] Omeprazole [PriLOSEC] 40 mg PO BID #60 capsule 10/06/16 09/01/18 Ferrous Gluconate 324 mg PO DAILY #30 tablet 09/01/18 Pramipexole Di-HCl [Pramipexole 09/01/18 Dihydrochloride] Zolpidem Tartrate 5 mg ORAL DAILY PRN 09/01/18 09/01/18 - Allergies Allergies/Adverse Reactions: Allergies Allergy/AdvReac Type Severity Reaction Status Date / Time No Known Drug Allergies Allergy Verified 07/04/23 19:01 - Social History Does the pt smoke?: Yes Smoking Status: Former smoker Does the pt drink ETOH?: Yes Does the pt have substance abuse?: No - Immunizations Immunizations are current?: Yes - POLST Patient has POLST: No PD ED PE NORMAL - Vitals Vital signs reviewed: Yes - General General: Alert and oriented X 3, No acute distress - HEENT HEENT: PERRL, Moist mucous membranes - Neck Neck: Supple, no meningeal sign - Cardiac Cardiac: RRR, Strong equal pulses - Respiratory Respiratory: No respiratory distress, Clear bilaterally - Abdomen Abdomen: Soft, Non tender, Non distended - Derm Derm: Warm and dry, No rash - Extremities Extremities: No edema, No calf tenderness / cord - Neuro Neuro: Alert and oriented X 3, heel seam rubber 2-12 intact, No motor deficit, No sensory deficit, Normal speech Eye Opening: Spontaneous Motor: Obeys Commands Verbal: Oriented GCS Score: 15 - Psych Psych: Normal mood, Normal affect Results - Vitals Vitals: Vital Signs - 24 hr 07/04/23 07/04/23 07/04/23 18:58 19:01 19:31 Temperature 37.0 C 37.0 C Heart Rate 120 H 120 H 107 H Respiratory 24 24 22 Rate Blood Pressure 156/75 H 156/75 H 144/80 H O2 Saturation 97 97 97 07/04/23 07/04/23 07/04/23 20:01 21:00 21:30 Temperature 36.8 C 36.6 C 36.5 C Heart Rate 90 88 81 Respiratory 18 16 22 Rate Blood Pressure 147/78 H 138/76 H 160/80 H O2 Saturation 96 98 97 07/04/23 07/04/23 22:00 22:30 Temperature 36.5 C Heart Rate 75 76 Respiratory 18 16 Rate Blood Pressure 118/60 120/62 O2 Saturation 99 100 Oxygen O2 Source Room air - Labs Labs: Laboratory Tests 07/04/23 07/04/23 07/04/23 19:05 19:05 20:01 WBC 6.4 RBC 4.43 L Hgb 9.5 L Hct 32.2 L MCV 72.7 L MCH 21.4 L MCHC 29.5 L RDW 18.5 H Plt Count 466 H MPV 8.4 Neut # (Auto) 2.4 Lymph # (Auto) 3.2 [place] # (Auto) 0.6 Eos # (Auto) 0.1 Baso # (Auto) 0.1 Absolute Nucleated RBC 0.00 Nucleated RBC % 0.0 Sodium 140 Potassium 3.4 L Chloride 101 Carbon Dioxide 19 L Anion Gap 20.0 H BUN 23 H Creatinine 1.1 Estimated GFR (MDRD) 68 L Glucose 187 H Calcium 9.2 Phosphorus 2.8 Magnesium 1.6 L Total Bilirubin 0.3 AST 15 ALT 15 Alkaline Phosphatase 86 Total Creatine Kinase 54 Total Protein 7.2 Albumin 4.5 Globulin 2.7 Albumin/Globulin Ratio 1.7 Lipase 26 Vitamin B12 275 Folate 2.9 L TSH 2.00 Urine Color YELLOW Urine Clarity CLEAR Urine pH 6.0 Ur Specific Donaldson 1.025 Urine Protein NEGATIVE Urine Glucose (UA) NEGATIVE Urine Ketones 15 H Urine Occult Blood NEGATIVE Urine Nitrite NEGATIVE Urine Bilirubin NEGATIVE Urine Urobilinogen 0.2 (NORMAL) Ur Leukocyte Esterase NEGATIVE Ur Microscopic Review NOT INDICATED Urine Culture Comments NOT INDICATED Salicylates < 1.5 Urine Opiates Screen NEGATIVE Ur Oxycodone Screen NEGATIVE Urine Methadone Screen NEGATIVE Ur Propoxyphene Screen NEGATIVE Acetaminophen < 0 L Ur Barbiturates Screen NEGATIVE Ur Tricyclics Screen NEGATIVE Ur Phencyclidine Scrn NEGATIVE Ur Amphetamine Screen POSITIVE H U Methamphetamines Scrn NEGATIVE U Benzodiazepines Scrn NEGATIVE Urine Cocaine Screen NEGATIVE U Cannabinoids Screen NEGATIVE Ethyl Alcohol < 10.0 PD Medical Decision Making - ED course Complexity details: reviewed results, re-evaluated patient, considered differential, d/w patient ED course: Patient has mild anemia, chronic, unchanged from prior. Does have hypomagnesemia and was given IV fluids and IV magnesium. He does drink alcohol regularly. His "spasms" resolved with a dose of Ativan and the magnesium. Patient is currently asymptomatic. Recommend that he follow-up closely with his PCP for further care. Recommend that he have his blood work rechecked as he does have a elevated anion gap. Not in active DTs at this time. Tolerating p.o. without difficulty. Abdomen is soft, nontender nondistended. No active chest pain or shortness of breath. Patient is resting comfortably using his phone without difficulty. Patient counseled regarding signs and symptoms for which I believe and urgent re-evaluation would be necessary. Patient with good understanding of and agreement to plan and is comfortable going home at this time This document was made in part using voice recognition software. While efforts are made to proofread this document, sound alike and grammatical errors may occur. Departure - Departure Disposition: 01 Home, Self Care Clinical Impression: Hypomagnesemia, Dehydration, Alcohol abuse Anemia Qualifiers: Anemia type: unspecified type Qualified Code(s): D64.9 - Anemia, unspecified Condition: Good Instructions: ED Dehydration Follow-Up: Brown Burks MD [Primary Care Provider] - Within 3 Days Comments: Make sure you are drinking plenty of water at home. Your magnesium levels were low today and you were given magnesium through your IV. You were also given IV fluids. Your laboratory test should be rechecked with your doctor in about 3 to 5 days. This should include a basic or complete metabolic panel and magnesium level. Forms: PCP List Discharge Date/Time: 07/04/23 22:50
[2023-07-04 19:13] LABS: BASOPHILS # (AUTO) 0.1 10^3/uL (0.0-0.1); BASOPHILS % (AUTO) 1.6 %; EOSINOPHILS # (AUTO) 0.1 10^3/uL (0.0-0.7); EOSINOPHILS % (AUTO) 1.7 %; HCT - HEMATOCRIT 32.2 % (42.0-52.0); HGB - HEMOGLOBIN 9.5 g/dL (14.0-18.0); LYMPHOCYTES # (AUTO) 3.2 10^3/uL (1.5-3.5); LYMPHOCYTES % (AUTO) 49.6 %; MEAN CORPUSCULAR HEMOGLOBIN 21.4 pg (27.0-31.0); MEAN CORPUSCULAR HGB CONC 29.5 g/dL (32.0-36.0); MEAN CORPUSCULAR VOLUME 72.7 fL (80.0-94.0); MEAN PLATELET VOLUME 8.4 fL (7.4-11.4); MONOCYTES # (AUTO) 0.6 10^3/uL (0.0-1.0); MONOCYTES % (AUTO) 9.5 %; NEUTROPHILS # (AUTO) 2.4 10^3/uL (1.5-6.6); NEUTROPHILS % (AUTO) 37.6 %; PLT - PLATELET COUNT 466 10^3/uL (130-450); RED BLOOD COUNT 4.43 10^6/uL (4.70-6.10); RED CELL DISTRIBUTION WIDTH 18.5 % (12.0-15.0); WHITE BLOOD COUNT 6.4 x10^3/uL (4.8-10.8)
[2023-07-04 19:28] LABS: ALBUMIN 4.5 g/dL (3.2-5.5); CK- CREATINE KINASE 54 IU/L (30-223); ETOH - ETHANOL < 10.0 mg/dL; LIPASE 26 U/L (11-82); MAGNESIUM 1.6 mg/dL (1.7-2.3); PHOSPHORUS 2.8 mg/dL (2.5-5.0)
[2023-07-04 19:34] LABS: ALBUMIN/GLOBULIN RATIO 1.7 (1.0-2.2); ALKALINE PHOSPHATASE 86 IU/L (42-121); ALT ALANINE AMINOTRANSFERASE 15 IU/L (10-60); AST ASPARTATE AMINOTRANSFERASE 15 IU/L (10-42); BILIRUBIN,TOTAL 0.3 mg/dL (0.2-1.0); BUN - BLOOD UREA NITROGEN 23 mg/dL (6-20); CALCIUM 9.2 mg/dL (8.5-10.3); CARBON DIOXIDE - CO2 19 mmol/L (21-32); CHLORIDE 101 mmol/L (101-111); CREATININE 1.1 mg/dL (0.6-1.3); GFR - MDRD 68 (>89); GLUCOSE 187 mg/dL (74-104); POTASSIUM 3.4 mmol/L (3.5-4.5); SODIUM 140 mmol/L (135-145); TOTAL PROTEIN 7.2 g/dL (6.4-8.9)
[2023-07-04 19:36] LABS: ACETAMINOPHEN < 0 ug/mL (10-30); SALICYLATE < 1.5 mg/dL
--- OUTSIDE RECORDS SUMMARY | 2023-07-04 19:38 | EXTERNAL MEDICAL SUMMARY RPT | Continuity of Care Document ---
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 Name Role Phone Unavailable Unavailable Unavailable Brown Burks Unavailable Unavailable Allergies and Intolerances date description facility reaction severity 2023-04-18 09:19:32 [facility] (no reactio n) Mild 2023-05-26 08:56:46 [facility] (no reactio n) Mild Medications date description facility 2023-05-26 00:00 Amlodipine [facility] 2023-04-18 00:00 Cephalexin [facility] 2023-04-19 00:00 Dextroamphetamine-Amphetamine [facility] 2023-05-25 00[facility] Problems date description facility 2023-05-03 10:38 Iron deficiency anemia, unspeci [facility] 2023-05-11 13:38 Iron deficiency anemia, [facility] Results/Labs test date facility value unit notes Social History date description facility 2023-04-18 00:00 Ex-smoker (finding) [facility] 2023-04-19 00:00 Ex-smoker (finding) [facility] 2023-05-26 00:00 Ex-smoker (finding) [facility] Vital Signs date measurement value units 2023-04-17 00:00 BP_diastolic 69 mmHg 2023-04-17 00:00 BP_systolic 128 mmHg 2023-04-17 00:00 heart_rate 68 /min 2023-04-17 00:00 o2_saturation 97 % 2023-04-17 00:00 respiration_rate 15 /min 2023-04-17 00:00 temperature_metric 36.83 C 2023-04-17 00:00 temperature_standard 98.3 F 2023-04-18 00:00 BMI 26.7 kg/m2 2023-04-18 00:00 BP_diastolic 88 mmHg 2023-04-18 00:00 BP_systolic 152 mmHg 2023-04-18 00:00 heart_rate 62 /min 2023-04-18 00:00 height_metric 175.26 cm 2023-04-18 00:00 height_standard 69 in 2023-04-18 00:00 o2_saturation 99 % 2023-04-18 00:00 weight_metric 82.21 kg 2023-04-18 00:00 weight_standard 181.24 lb 2023-05-04 00:00 BP_diastolic 76 mmHg 2023-05-04 00:00 BP_systolic 178 mmHg 2023-05-04 00:00 heart_rate 61 /min 2023-05-04 00:00 o2_saturation 99 % 2023-05-04 00:00 respiration_rate 16 /min 2023-05-04 00:00 temperature_metric 37.28 C 2023-05-04 00:00 temperature_standard 99.1 F 2023-05-26 00:00 BMI 27.1 kg/m2 2023-05-26 00:00 BP_diastolic 96 mmHg 2023-05-26 00:00 BP_systolic 176 mmHg 2023-05-26 00:00 heart_rate 59 /min 2023-05-26 00:00 height_metric 175.26 cm 2023-05-26 00:00 height_standard 69 in 2023-05-26 00:00 o2_saturation 100 % 2023-05-26 00:00 weight_metric 83.23 kg 2023-05-26 00:00 weight_standard 183.49 lb
[2023-07-04 20:12] LABS: MUDS CUTOFF CONCENTRATIONS CUTOFF CONC BELOW:
[2023-07-04 20:14] LABS: BILIRUBIN,URINE NEGATIVE (NEGATIVE); GLUCOSE, URINE (UA) NEGATIVE (NEGATIVE); KETONES,URINE (UA) 15 mg/dL (NEGATIVE); LEUKOCYTE ESTERASE, URINE NEGATIVE (NEGATIVE); NITRITE,URINE NEGATIVE (NEGATIVE); OCCULT BLOOD,URINE NEGATIVE (NEGATIVE); PROTEIN,URINE NEGATIVE (NEGATIVE); UROBILINOGEN,URINE 0.2 (NORMAL) E.U./dL (NORMAL)
[2023-07-04] MEDS ORDERED: SODIUM CHLORIDE 0.9% 1,000 ML IV STA (20:14)
[2023-07-04] MEDS ORDERED: MAGNESIUM SULFATE 2 GRAM 2 GM/50 ML BAG IV ONE (20:14)
[2023-07-04 20:20] LABS: CLARITY,URINE CLEAR (CLEAR)
[2023-07-04 20:27] LABS: AMPHETAMINE SCREEN,URINE POSITIVE (NEGATIVE); BARBITURATE SCREEN,UR NEGATIVE (NEGATIVE); BENZODIAZEPINES SCREEN, URINE NEGATIVE (NEGATIVE); COCAINE SCREEN URINE NEGATIVE (NEGATIVE); METHADONE SCREEN, URINE NEGATIVE (NEGATIVE); METHAMPHETAMINES SCREEN, URINE NEGATIVE (NEGATIVE); OPIATE SCREEN, URINE NEGATIVE (NEGATIVE); OXYCODONE SCREEN, URINE NEGATIVE (NEGATIVE); PROPOXYPHENE SCREEN, URINE NEGATIVE (NEGATIVE); THC CANNABINOID SCREEN, URINE NEGATIVE (NEGATIVE); TRICYCLIC ANTIDEPRESSANT,URINE NEGATIVE (NEGATIVE)
[2023-07-04 22:46] VITALS: BP 120/62; O2SAT 100
== END 2023-07-04 22:50 | disposition home or self-care (01) ==
LOC: ED 18:48
DX: D64.9 Anemia, unspecified (principal); E83.42 Hypomagnesemia; E86.0 Dehydration; F10.10 Alcohol abuse, uncomplicated; Y90.0 Blood alcohol level of less than 20 mg/100 ml; I10 Essential (primary) hypertension; J44.9 Chronic obstructive pulmonary disease, unspecified; Z87.891 Personal history of nicotine dependence; Z79.899 Other long term (current) drug therapy
CPT/HCPCS: 36415; 80053; 80306; 80307; 81003; 82550; 82607; 82746; 83690; 83735; 84100; 84443; 85025; 96365; 96375; 99283; G0480; J2060; 80320; 80329; 81001; 87086

== ENCOUNTER 2024-04-21 | Emergency (ER) | payer MEDICAID, MEDICARE ==
[2024-04-21 00:11] VITALS: O2SAT 97
--- NOTE | 2024-04-21 01:04 | XRAY Report ---
PROCEDURE: Chest 2V INDICATIONS: shortness of breath TECHNIQUE: 2 views of the chest were acquired. COMPARISON: Chest plain films 07/28/2018.. FINDINGS: Surgical changes and devices: None. Lungs and pleura: No pleural effusions or pneumothorax. Lungs are clear. Mediastinum: Mediastinal contours appear normal except for presence of a moderately large hiatal her ann-marie behind the heart. Heart size is normal. Bones and chest wall: No suspicious bony lesions. Overlying soft tissues appear unremarkable. IMPRESSION: No acute cardiopulmonary process. Pneumonia or acute CHF is not found. Prominent hiatal hernia behind the heart. Reviewed by: Luigi Jerry MD on 04/21/2024 1:02 AM PDT Approved by: Luigi Jerry MD on 04/21/2024 1:02 AM PDT Station ID: [id number]
[2024-04-21 01:08] LABS: CORONAVIRUS 229E-RESP PCR NOT DETECTED; CORONAVIRUS HKU1-RESP PCR NOT DETECTED; CORONAVIRUS NL63-RESP PCR NOT DETECTED; CORONAVIRUS OC43-RESP PCR NOT DETECTED
[2024-04-21 01:11] LABS: HUMAN METAPNEUMOVIRUS NOT DETECTED; INFLUENZA A- RESP PCR PANEL NOT DETECTED; INFLUENZA B - RESP PCR PANEL NOT DETECTED; PARAINFLUENZA VIRUS 1 NOT DETECTED; PARAINFLUENZA VIRUS 2 NOT DETECTED; PARAINFLUENZA VIRUS 3 NOT DETECTED; PARAINFLUENZA VIRUS 4 NOT DETECTED; RHINOVIRUS/ENTEROVIRUS NOT DETECTED; RSV- RESP PCR PANEL NOT DETECTED; SARS-CoV-2 -RESP PCR PANEL DETECTED
[2024-04-21 01:12] LABS: B. PARAPERTUSSIS- RESP PCR PAN NOT DETECTED; B. PERTUSSIS- RESP PCR PANEL NOT DETECTED; C. PNEUMONIAE- RESP PCR PANEL NOT DETECTED; M. PNEUMONIAE- RESP PCR PANEL NOT DETECTED
--- NOTE | 2024-04-21 01:51 | ED Physician Documentation ---
PD HPI DYSPNEA - Stated complaint Stated Complaint: SOA - Chief complaint Chief Complaint: Resp - History obtained from History obtained from: Patient - Additional information Additional information: HPI from patient. Patient c/o generalized malaise and myalgias, headache, dyspnea and [employer] cough since yesterday. unknown if fever (has not taken temp at home). His chief concern is dyspnea, worsening since onset. PMHx includes asthma and COPD. PD PAST MEDICAL HISTORY - Past Medical History Past Medical History: Yes Cardiovascular: Hypertension Respiratory: COPD Endocrine/Autoimmune: None GI: None : None HEENT: None Psych: None Musculoskeletal: None, Other Derm: None - Past Surgical History Past Surgical History: Yes General: Appendectomy, EGD, Other Ortho: Arthroscopic surgery - Present Medications Home Medications: Ambulatory Orders Medication Instructions Recorded Confirmed Amlodipine Besylate [Norvasc] 10 mg PO DAILY 07/19/23 03/12/24 Sildenafil Citrate [Sildenafil] 20 mg PO PRN PRN 07/19/23 03/12/24 Folic Acid 1 mg PO DAILY 07/21/23 03/12/24 Dextroamphetamine/Amphetamine 40 mg PO DAILY 09/01/23 03/12/24 [Adderall 20 mg Tablet] traZODone [Desyrel] 50 mg PO PRN PRN 09/01/23 03/12/24 Albuterol 2.5 mg INH Q4H PRN #30 ml 04/21/24 Albuterol Sulf [Ventolin Hfa 1 - 2 puffs INH Q4HR PRN #1 each 04/21/24 Inhaler] Nirmatrelvir/Ritonavir [Paxlovid 1 each PO UD #1 kit 04/21/24 300-100 mg Dose Pack] predniSONE [Deltasone] 40 mg PO DAILY 3 Days #6 tablet 04/21/24 - Allergies Allergies/Adverse Reactions: Allergies Allergy/AdvReac Type Severity Reaction Status Date / Time No Known Drug Allergies Allergy Verified 04/21/24 00:11 - Social History Does the pt smoke?: Yes Smoking Status: Current every day smoker Does the pt drink ETOH?: Yes Does the pt have substance abuse?: No - Immunizations Immunizations are current?: Yes - POLST Patient has POLST: No PD ED PE NORMAL - Vitals Vital signs reviewed: Yes - General General: Alert and oriented X 3, No acute distress, Well developed/nourished - HEENT HEENT: Pharynx benign - Neck Neck: Supple, no meningeal sign - Cardiac Cardiac: RRR, No murmur - Respiratory Respiratory: No respiratory distress, Other (initially there are bilateral end- expiratory wheezes but these clear with cough and subsequent deep inspirations) - Extremities Extremities: No edema Results - Vitals Vitals: Vital Signs - 24 hr 04/21/24 02:45 Heart Rate 88 Respiratory 20 Rate Blood Pressure 155/91 H O2 Saturation 97 Oxygen O2 Source Room air - Labs Labs: Laboratory Tests 04/21/24 00:12 Nasal Adenovirus (PCR) NOT DETECTED Nasal B. parapertussis DNA (PCR) NOT DETECTED Nasal Coronavir 229E PCR NOT DETECTED Nasal Coronavir HKU1 PCR NOT DETECTED Nasal Coronavir NL63 PCR NOT DETECTED Nasal Coronavir OC43 PCR NOT DETECTED Nasal Enterovir/Rhinovir PCR NOT DETECTED Nasal Influenza B PCR NOT DETECTED Nasal Influenza A PCR NOT DETECTED Nasal Parainfluen 1 PCR NOT DETECTED Nasal Parainfluen 2 PCR NOT DETECTED Nasal Parainfluen 3 PCR NOT DETECTED Nasal Parainfluen 4 PCR NOT DETECTED Nasal RSV (PCR) NOT DETECTED Nasal B.pertussis DNA PCR NOT DETECTED Nasal C.pneumoniae (PCR) NOT DETECTED Ash Human Metapneumo PCR NOT DETECTED Nasal M.pneumoniae (PCR) NOT DETECTED Nasal SARS-CoV-2 (PCR) DETECTED A - Rads (name of study) chest xray Relevant Findings:: Prelim report reviewed, See rad report PD Medical Decision Making - ED course Complexity details: reviewed results, considered differential, d/w patient ED course: Positive for SARS-COV-2 on respiratory PCR panel. Normal CXR. He is given 10mg PO decadron and rx for 3 days of 40mg QD prednisone (for bronchospasm which is likely asthma exacerbation triggered by COVID) , as well as rx for albuterol neb bullets and albuterol MDI (says he is out of both of these) and Paxlovid. Results d/w patient, return precautions reviewed Departure - Departure Disposition: 01 Home, Self Care Clinical Impression: COVID-19 Condition: Good Instructions: ED Reactive Airway Disease, ED Viral Syndrome Follow-Up: Brown Burks MD [Primary Care Provider] - Prescriptions: Albuterol Sulf [Ventolin Hfa Inhaler] 1 - 2 puffs INH Q4HR PRN #1 each PRN Reason: Shortness Of Air/Wheezing Albuterol 2.5 mg INH Q4H PRN #30 ml PRN Reason: Wheezing predniSONE [Deltasone] 40 mg PO DAILY 3 Days #6 tablet Nirmatrelvir/Ritonavir [Paxlovid 300-100 mg Dose Pack] 1 each PO UD #1 kit Comments: You tested positive for COVID tonight. Fortunately, your chest x-ray is normal; there is no evidence of pneumonia. There was an incidental finding of hiatal hernia on the chest x-ray. You were given a dose of steroid (dexamethasone) in the emergency department, and I am electronically submitting a prescription for three days of daily prednisone (different steroid but will have similar effect) to the [facility] in [place]. I am also submitting prescriptions for an albuterol inhaler, liquid albuterol for use with your nebulizer, and Paxlovid. Paxlovid is a combination of two anti-viral medications that help reduce the severity of COVID. IT IS VERY IMPORTANT THAT YOU DO NOT TAKE SILDENAFIL (VIAGRA) DURING THE 5-DAY COURSE OF PAXLOVID; THESE MEDICATIONS HAVE THE POTENTIAL FOR DANGEROUS INTERACTION. Forms: Activity restrictions Discharge Date/Time: 04/21/24 02:46
[2024-04-21] MEDS: DEXAMETHASONE 10 MG/ML VIAL PO STA (02:31)
[2024-04-21] MEDS: CHERRY SYRUP 10 ML UDC PO ONE (02:31)
[2024-04-21 02:51] VITALS: BP 155/91
== END 2024-04-21 02:46 | disposition home or self-care (01) ==
LOC: ED
DX: U07.1 COVID-19 (principal); J44.9 Chronic obstructive pulmonary disease, unspecified; I10 Essential (primary) hypertension; F17.200 Nicotine dependence, unspecified, uncomplicated; Z79.899 Other long term (current) drug therapy
CPT/HCPCS: 71046; 87633; 99282; 99283; A9270